=== PATIENT | male | born 2005 | race Caucasian/White ===

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

== ENCOUNTER 2023-09-28 08:42 | Outpatient (CLI) | payer BC | END 2023-09-28 08:43 | disposition home or self-care (01) | LOC: BICRAD 08:42 | PROVIDERS: ATTEND Specialist | DX: S99.922A Unspecified injury of left foot, initial encounter (principal) ==